=== PATIENT | male | born 1945 | race Caucasian/White ===

== ENCOUNTER → 2017-01-15 | Outpatient (CLI) | payer MEDICARE ==
[~2017-01-15] MED LIST: ADULT LOW DOSE81 MG; ALLOPURINOL100 M1 PO; ALLOPURINOL100 MG PO; AMBIEN 10MG TAB10 MG PO; BUPROPION HCL150 M1; CLONAZEPAM 1MG T1 MG PO; CLONIDINE HCL0.1 MG PO; DOMPERIDONE1 POW PO; DRONABINOL2.5 MG PO; ELIQUIS5 MG PO; ERYTHROMYCIN250 M2 PO; FUROSEMIDE; HYDROCODONE 7.51 TAB PO; KLONOPIN0.5 M1 PO; LEVAQUIN500 MG PO; NORCO1 TAB PO; OMEPRAZOLE20 MG PO; POTASSIUM GLUC550 M1; PROPRANOLOL HYD10 MG PO; REGLAN10 M2 PO; REMERON SOLTAB15 MG; SIMVASTATIN20 MG PO; TAMSULOSIN HYD0.4 MG; XIFAXAN550 MG PO; ZOFRAN4 MG PO
[2017-01-15 09:44] LABS: LYMPH # 1.5 K/mm3 (0.7-4.5); LYMPH % 18.6 % (10-50)
[2017-01-15 10:35] LABS: BUN 17 mg/dL (7-18)
[2017-01-15 10:36] LABS: GFR (ESTIMATED) 74 ML/MIN (>60)
== END ==
LOC: LAB 09:09
PROVIDERS: Internal Medicine Adolescent Medicine
DX: E78.5 Hyperlipidemia, unspecified (principal); M79.1 Myalgia; N41.1 Chronic prostatitis; Z12.5 Encounter for screening for malignant neoplasm of prostate
CPT/HCPCS: G0103